=== PATIENT | male | born 1980 | race Caucasian/White ===

== ENCOUNTER 2017-07-19 11:35 | Emergency (ER) | payer OTHER ==
[~2017-07-19] VITALS: Ht 182.9 cm; Wt 100.4 kg
[~2017-07-19 11:35] MED LIST: ALBIPROI INH; AMOX500 PO; ARIP10 PO; Amoxicillin500 MG PO; Ativan0.5 MG PO; Ativan1 MG PO; Augmentin 875-1 EACH PO; BENZ2 PO; BUPR150ER PO; BUPR150T2 PO; CEPH500 PO; CIPRO500 MG PO; CITA20 PO; CLIN300 PO; CLON2 PO; CYCL10 PO; Ciprodex Otic7.5 ML BOTHEARS; Ciprodex Otic7.5 ML LEFTEAR; Cyclobenzaprine5 MG PO; DIPH50 PO; DIVA500EC PO; DOXY100 PO; FAMO20 PO; FLUO10 PO; HALO5 PO; HYDACE5 PO; HYDCOR2.5A PR; IBUP600 PO; IBUP800 PO; LATUDA PO; MIRT15 PO; NEOCOLOTSU LEFTEAR; NEOPOLHCSU BOTHEARS; NEOPOLHCSU RIGHTEAR; Norco 5-325 Ta1 EACH PO; OLAN10 PO; OLAN20 MM; OLAN5 PO; OMEP20ER PO; PROC10 PO; PROM25 PO; Percocet 10-321 EACH PO; Percocet 5-3251 EACH PO; RISP2 PO; RXCYCL10 PO; RXOXYACE PO; SAPHRIS; SULTRIDS PO; TRAZ100 PO; TRAZ150T57 PO; Venlafaxine HC225 MG PO; Zithromax250 MG PO; Zyprexa10 MG PO; [UNRECOGNIZED DRUG - REMARK]
[2018-04-24] MEDS ORDERED: NEOPOLHCSU RIGHTEAR (09:37)
== END 2017-07-19 12:20 | disposition left against medical advice (07) ==
LOC: ER 11:35
DX: Z53.21 Procedure and treatment not carried out due to patient leaving prior to being seen by health care provider (principal)
CPT/HCPCS: 99281

== ENCOUNTER 2017-08-16 09:35 | Emergency (ER) | payer OTHER ==
[~2017-08-16] VITALS: Ht 182.9 cm; Wt 99.8 kg
[2017-08-16] MEDS ORDERED: CYCL10 PO (11:50)
[2017-08-16] MEDS ORDERED: IBUP800 PO (11:50)
[2017-08-16] MEDS ORDERED: Zofran Odt4 MG SL (12:01)
[2018-04-24] MEDS ORDERED: NEOPOLHCSU RIGHTEAR (09:37)
== END 2017-08-16 12:00 | disposition home or self-care (01) ==
LOC: ER 09:35
DX: S06.0X9A Concussion with loss of consciousness of unspecified duration, initial encounter (principal); S16.1XXA Strain of muscle, fascia and tendon at neck level, initial encounter; F17.210 Nicotine dependence, cigarettes, uncomplicated; Z88.8 Allergy status to other drugs, medicaments and biological substances; V69.60XA Unspecified occupant of heavy transport vehicle injured in collision with unspecified motor vehicles in traffic accident, initial encounter
CPT/HCPCS: 70450; 72125; 96372; 99284; J1885; J2405

== ENCOUNTER 2017-09-06 18:47 | Emergency (ER) | payer OTHER ==
[~2017-09-06] VITALS: Ht 182.9 cm; Wt 99.8 kg
[~2017-09-06 18:47] MED LIST changes: +Zofran Odt4 MG SL
[2017-09-06] MEDS ORDERED: Amoxicillin500 MG PO (20:21)
== END 2017-09-06 20:28 | disposition home or self-care (01) ==
LOC: ER 18:47
DX: H66.92 Otitis media, unspecified, left ear (principal); F17.210 Nicotine dependence, cigarettes, uncomplicated; Z88.8 Allergy status to other drugs, medicaments and biological substances
CPT/HCPCS: 99283

== ENCOUNTER 2017-09-19 08:44 | Emergency (ER) | payer OTHER ==
[~2017-09-19] VITALS: Ht 185.4 cm; Wt 99.8 kg
[2017-09-19] MEDS ORDERED: IBUP800 PO (09:13)
== END 2017-09-19 09:21 | disposition home or self-care (01) ==
LOC: ER 08:44
DX: S61.411A Laceration without foreign body of right hand, initial encounter (principal); Z23 Encounter for immunization; F17.210 Nicotine dependence, cigarettes, uncomplicated; W26.0XXA Contact with knife, initial encounter
CPT/HCPCS: 12001; 90471; 90714; 99283

== ENCOUNTER 2018-09-19 09:30 | Emergency (ER) | payer OTHER ==
[~2018-09-19] VITALS: Ht 182.9 cm; Wt 102.1 kg
[2018-09-19] MEDS ORDERED: Bactrim 400-801 EACH PO (10:10)
[2018-09-19] MEDS ORDERED: METR500 PO (10:10)
[2018-09-19 12:04] LABS: BASOPHILS ABSOLUTE AUTO 0.04 K/mm3 (0.00-0.23); BASOPHILS PERCENT AUTO 0 % (0-2); EOSINOPHILS ABSOLUTE AUTO 0.33 K/mm3 (0.00-0.68); EOSINOPHILS PERCENT AUTO 3 % (0-6); Hematocrit 46.4 % (37.0-53.0); Hemoglobin 15.3 g/dL (13.5-17.5); IMMATURE GRAN ABSOLUTE AUTO 0.04 K/mm3 (0.00-0.10); IMMATURE GRAN PERCENT AUTO 0 % (0-1); LYMPHOCYTES ABSOLUTE AUTO 3.24 K/mm3 (0.84-5.20); LYMPHOCYTES PERCENT AUTO 24 % (21-46); MONOCYTES ABSOLUTE AUTO 1.13 K/mm3 (0.16-1.47); MONOCYTES PERCENT AUTO 9 % (4-13); Mean Corpuscular HGB 28.9 pg (26.0-34.0); Mean Corpuscular Volume 88 fL (80-100); Mean Platelet Volume 9.2 fL (9.1-12.4); NEUTROPHILS ABSOLUTE AUTO 8.51 K/mm3 (1.96-9.15); NEUTROPHILS PERCENT AUTO 64 % (41-73); Platelet Count 230 K/mm3 (150-400); RDW Coefficient Variation 12.8 % (11.7-14.2); RDW Standard Deviation 40.8 fL (35.1-46.3); White Blood Cell Count 13.29 K/mm3 (4.00-11.30)
[2018-09-19 12:19] LABS: Alanine Aminotransfer (ALT/SGP 171 U/L (12-78); Albumin, Blood 2.9 g/dL (3.4-5.0); Albumin/Globulin Ratio 0.9 (0.8-1.8); Alk Phos 74 U/L (50-136); Anion Gap 6 mmol/L (6-16); Aspartate Aminotrans (AST/SGOT 90 U/L (12-37); Bilirubin, Total 0.2 mg/dL (0.1-1.0); Blood Urea Nitrogen 15 mg/dL (8-24); Bun/Creatinine Ratio 17.6 (12.0-20.0); CO2, Blood 25 mmol/L (21-32); Calcium, Blood 7.9 mg/dL (8.5-10.1); Chloride, Blood 109 mmol/L (98-108); Creatinine, Blood 0.85 mg/dL (0.60-1.20); Globulin, Blood 3.2 g/dL (2.2-4.0); Glomerular Filtration Rate >60 (60-); Glucose, Blood 93 mg/dL (70-99); Potassium, Blood 4.3 mmol/L (3.5-5.5); Sodium, Blood 140 mmol/L (136-145); Total Protein, Blood 6.1 g/dL (6.4-8.2)
[2018-09-19] MEDS ORDERED: Flagyl500 MG PO (13:26)
[2018-09-19] MEDS ORDERED: Norco 5-325 Ta1 EACH PO (13:26)
[2018-09-19] MEDS ORDERED: Colace100 MG PO (13:26)
[2018-09-19] MEDS ORDERED: Bactrim Ds Tab1 EACH PO (13:26)
== END 2018-09-19 14:00 | disposition home or self-care (01) ==
LOC: ER 09:30
PROVIDERS: Emergency Medicine
DX: K57.32 Diverticulitis of large intestine without perforation or abscess without bleeding (principal); Z88.8 Allergy status to other drugs, medicaments and biological substances; Z79.899 Other long term (current) drug therapy; F43.10 Post-traumatic stress disorder, unspecified; F31.9 Bipolar disorder, unspecified; F20.9 Schizophrenia, unspecified
CPT/HCPCS: 36415; 74176; 80053; 83690; 85025; 96361; 96374; 96375; 99284-25; J2405; J3010; J7030

== ENCOUNTER 2018-10-10 12:47 | Emergency (ER) | payer OTHER ==
[~2018-10-10] VITALS: Ht 182.9 cm; Wt 102.1 kg
[~2018-10-10 12:47] MED LIST changes: +Bactrim 400-801 EACH PO; +Bactrim Ds Tab1 EACH PO; +Colace100 MG PO; +Flagyl500 MG PO; +METR500 PO
[2018-10-10 13:48] LABS: BASOPHILS ABSOLUTE AUTO 0.05 K/mm3 (0.00-0.23); BASOPHILS PERCENT AUTO 0 % (0-2); EOSINOPHILS ABSOLUTE AUTO 0.29 K/mm3 (0.00-0.68); EOSINOPHILS PERCENT AUTO 2 % (0-6); IMMATURE GRAN ABSOLUTE AUTO 0.03 K/mm3 (0.00-0.10); IMMATURE GRAN PERCENT AUTO 0 % (0-1); LYMPHOCYTES ABSOLUTE AUTO 3.52 K/mm3 (0.84-5.20); LYMPHOCYTES PERCENT AUTO 29 % (21-46); MONOCYTES ABSOLUTE AUTO 0.86 K/mm3 (0.16-1.47); MONOCYTES PERCENT AUTO 7 % (4-13); Mean Corpuscular HGB 29.7 pg (26.0-34.0); Mean Corpuscular Volume 87 fL (80-100); Mean Platelet Volume 9.1 fL (9.1-12.4); NEUTROPHILS ABSOLUTE AUTO 7.41 K/mm3 (1.96-9.15); NEUTROPHILS PERCENT AUTO 61 % (41-73); Platelet Count 247 K/mm3 (150-400); RDW Coefficient Variation 12.1 % (11.7-14.2); RDW Standard Deviation 38.7 fL (35.1-46.3); Red Blood Cell Count 5.39 M/mm3 (4.30-5.90); White Blood Cell Count 12.16 K/mm3 (4.00-11.30)
[2018-10-10 14:05] LABS: Alanine Aminotransfer (ALT/SGP 80 U/L (12-78); Albumin, Blood 3.4 g/dL (3.4-5.0); Albumin/Globulin Ratio 0.9 (0.8-1.8); Alk Phos 72 U/L (50-136); Anion Gap 4 mmol/L (6-16); Aspartate Aminotrans (AST/SGOT 28 U/L (12-37); Bilirubin, Total 0.5 mg/dL (0.1-1.0); Blood Urea Nitrogen 23 mg/dL (8-24); CO2, Blood 26 mmol/L (21-32); Calcium, Blood 8.4 mg/dL (8.5-10.1); Chloride, Blood 107 mmol/L (98-108); Globulin, Blood 3.7 g/dL (2.2-4.0); Glomerular Filtration Rate >60 (60-); Glucose, Blood 103 mg/dL (70-99); Potassium, Blood 3.9 mmol/L (3.5-5.5); Sodium, Blood 137 mmol/L (136-145); Total Protein, Blood 7.1 g/dL (6.4-8.2)
[2018-10-10 15:18] LABS: Source, Urine Clean Catch
[2018-10-10 15:29] LABS: Bilirubin, Urine Neg (Neg); Blood, Urine Neg (Neg); Glucose Qualitative, Urine Neg (Neg); Ketones, Urine Neg (Neg); Leukocyte Esterase, Urine Neg (Neg); Nitrite, Urine Neg (Neg); Protein, Urine Neg (Neg); Urobilinogen, Urine 1+ (Normal)
[2018-10-10 15:56] LABS: Appearance, Urine Clear (Clear); Color, Urine Yellow (P-Yellow)
== END 2018-10-10 16:07 | disposition left against medical advice (07) ==
LOC: ER 12:47
PROVIDERS: Internal Medicine; Physician Assistant
DX: R10.32 Left lower quadrant pain (principal)
CPT/HCPCS: 36415; 80053; 81003; 83690; 85025; 99284

== ENCOUNTER 2018-10-20 09:19 | Emergency (ER) | payer OTHER ==
[~2018-10-20] VITALS: Ht 182.9 cm; Wt 102.1 kg
[2018-10-20] MEDS ORDERED: Veetids 500500 MG PO (10:07)
== END 2018-10-20 10:34 | disposition home or self-care (01) ==
LOC: ER 09:19
DX: J03.90 Acute tonsillitis, unspecified (principal); F20.9 Schizophrenia, unspecified; F31.9 Bipolar disorder, unspecified; F43.10 Post-traumatic stress disorder, unspecified; Z87.891 Personal history of nicotine dependence; Z88.8 Allergy status to other drugs, medicaments and biological substances
CPT/HCPCS: 87430; 96374; 99283-25; J1100

== ENCOUNTER 2021-05-04 12:57 | Emergency (ER) | payer OTHER ==
[~2021-05-04] VITALS: Ht 182.9 cm; Wt 108.9 kg
[~2021-05-04 12:57] MED LIST changes: +Veetids 500500 MG PO
[2021-05-04] MEDS ORDERED: CEPH500 PO (14:28)
== END 2021-05-04 14:52 | disposition home or self-care (01) ==
LOC: ER 12:57
DX: L03.311 Cellulitis of abdominal wall (principal); F20.9 Schizophrenia, unspecified; Z88.8 Allergy status to other drugs, medicaments and biological substances
CPT/HCPCS: 10061; 99283-25; A9270

== ENCOUNTER 2021-05-15 15:29 | Emergency (ER) | payer OTHER ==
[~2021-05-15] VITALS: Ht 182.9 cm; Wt 106.1 kg
[2021-05-15 16:12] LABS: BASOPHILS ABSOLUTE AUTO 0.05 K/mm3 (0.00-0.23); BASOPHILS PERCENT AUTO 0 % (0-2); EOSINOPHILS ABSOLUTE AUTO 0.28 K/mm3 (0.00-0.68); EOSINOPHILS PERCENT AUTO 2 % (0-6); Hemoglobin 16.1 g/dL (13.5-17.5); IMMATURE GRAN ABSOLUTE AUTO 0.03 K/mm3 (0.00-0.10); IMMATURE GRAN PERCENT AUTO 0 % (0-1); LYMPHOCYTES ABSOLUTE AUTO 5.32 K/mm3 (0.84-5.20); LYMPHOCYTES PERCENT AUTO 39 % (21-46); MONOCYTES ABSOLUTE AUTO 1.18 K/mm3 (0.16-1.47); MONOCYTES PERCENT AUTO 9 % (4-13); Mean Corpuscular HGB 29.2 pg (26.0-34.0); Mean Corpuscular HGB Conc 34.3 g/dL (31.5-36.5); Mean Corpuscular Volume 85 fL (80-100); Mean Platelet Volume 9.1 fL (9.1-12.4); NEUTROPHILS ABSOLUTE AUTO 6.75 K/mm3 (1.96-9.15); NEUTROPHILS PERCENT AUTO 50 % (41-73); Platelet Count 256 K/mm3 (150-400); RDW Coefficient Variation 12.2 % (11.7-14.2); RDW Standard Deviation 38.5 fL (35.1-46.3); Red Blood Cell Count 5.51 M/mm3 (4.30-5.90); White Blood Cell Count 13.61 K/mm3 (4.00-11.30)
[2021-05-15 16:38] LABS: Alanine Aminotransfer (ALT/SGP 53 U/L (12-78); Albumin, Blood 3.5 g/dL (3.4-5.0); Albumin/Globulin Ratio 0.9 (0.8-1.8); Alk Phos 77 U/L (50-136); Anion Gap 4 mmol/L (6-16); Aspartate Aminotrans (AST/SGOT 21 U/L (12-37); Bilirubin, Total 0.3 mg/dL (0.1-1.0); Blood Urea Nitrogen 20 mg/dL (8-24); Bun/Creatinine Ratio 30.4 (12.0-20.0); CO2, Blood 26 mmol/L (21-32); Calcium, Blood 8.8 mg/dL (8.5-10.1); Chloride, Blood 109 mmol/L (98-108); Creatinine, Blood 0.66 mg/dL (0.60-1.20); Globulin, Blood 3.8 g/dL (2.2-4.0); Glomerular Filtration Rate >60 (60-); Glucose, Blood 111 mg/dL (70-99); Potassium, Blood 3.7 mmol/L (3.5-5.5); Sodium, Blood 139 mmol/L (136-145); Total Protein, Blood 7.3 g/dL (6.4-8.2)
[2021-05-15] MEDS ORDERED: Flagyl500 MG PO (19:08)
[2021-05-15] MEDS ORDERED: Cipro500 MG PO (19:08)
[2021-05-15] MEDS ORDERED: Percocet 5-3251 EACH PO (19:12)
== END 2021-05-15 19:18 | disposition home or self-care (01) ==
LOC: ER 15:29
PROVIDERS: Student in an Organized Health Care Education/Training Program
DX: K57.32 Diverticulitis of large intestine without perforation or abscess without bleeding (principal); Z88.8 Allergy status to other drugs, medicaments and biological substances; Z79.899 Other long term (current) drug therapy
CPT/HCPCS: 36415; 74177; 80053; 81000; 85025; 96374; 96375; 99284-25; A9270; J1170; J1885; J2405; Q9967

== ENCOUNTER 2021-06-13 22:47 | Emergency (ER) | payer OTHER ==
[~2021-06-13] VITALS: Ht 182.9 cm; Wt 108.9 kg
[~2021-06-13 22:47] MED LIST changes: +AMOCLA875 PO; +Cipro500 MG PO
[2021-06-14 02:25] LABS: Hematocrit 47.7 % (37.0-53.0); Hemoglobin 16.1 g/dL (13.5-17.5); Mean Corpuscular HGB 29.5 pg (26.0-34.0); Mean Corpuscular HGB Conc 33.8 g/dL (31.5-36.5); Mean Corpuscular Volume 87 fL (80-100); Mean Platelet Volume 9.3 fL (9.1-12.4); Platelet Count 253 K/mm3 (150-400); RDW Coefficient Variation 12.2 % (11.7-14.2); RDW Standard Deviation 39.1 fL (35.1-46.3); Red Blood Cell Count 5.46 M/mm3 (4.30-5.90); White Blood Cell Count 17.46 K/mm3 (4.00-11.30)
[2021-06-14 02:42] LABS: Alanine Aminotransfer (ALT/SGP 67 U/L (12-78); Albumin/Globulin Ratio 1.1 (0.8-1.8); Alk Phos 84 U/L (50-136); Anion Gap 7 mmol/L (6-16); Aspartate Aminotrans (AST/SGOT 26 U/L (12-37); Bilirubin, Total 0.5 mg/dL (0.1-1.0); Blood Urea Nitrogen 19 mg/dL (8-24); Bun/Creatinine Ratio 21.7 (12.0-20.0); CO2, Blood 28 mmol/L (21-32); Chloride, Blood 106 mmol/L (98-108); Creatinine, Blood 0.88 mg/dL (0.60-1.20); Globulin, Blood 3.8 g/dL (2.2-4.0); Glomerular Filtration Rate >60 (60-); Glucose, Blood 100 mg/dL (70-99); Potassium, Blood 4.6 mmol/L (3.5-5.5); Sodium, Blood 141 mmol/L (136-145); Total Protein, Blood 7.8 g/dL (6.4-8.2)
[2021-06-14 02:44] LABS: BASOPHILS PERCENT MAN 0 % (0-2); EOSINOPHILS ABSOLUTE MAN 0.52 K/mm3 (0.00-0.68); EOSINOPHILS PERCENT MAN 3 % (0-6); LYMPHOCYTES % ATYPICAL MANUAL 9 % (0-0); LYMPHOCYTES ABSOLUTE MAN 6.46 K/mm3 (0.84-5.20); LYMPHOCYTES PERCENT MAN 28 % (21-46); MONOCYTES ABSOLUTE MAN 1.74 K/mm3 (0.16-1.47); MONOCYTES PERCENT MAN 10 % (4-13); NEUTROPHILS ABSOLUTE MAN 8.73 K/mm3 (1.96-9.15); SEG NEUTROPHILS PERCENT MAN 50 % (41-73); TOTAL CELLS COUNTED 100
[2021-06-14] MEDS ORDERED: AMOCLA875 PO (05:24)
== END 2021-06-14 05:41 | disposition home or self-care (01) ==
LOC: ER 22:47
PROVIDERS: Student in an Organized Health Care Education/Training Program
DX: K57.92 Diverticulitis of intestine, part unspecified, without perforation or abscess without bleeding (principal); H60.92 Unspecified otitis externa, left ear; F17.210 Nicotine dependence, cigarettes, uncomplicated; Z88.8 Allergy status to other drugs, medicaments and biological substances
CPT/HCPCS: 36415; 80053; 83690; 85025; 96374; 96375; 99283-25; A9270; J1885; J2270

== ENCOUNTER 2021-09-10 05:48 | Emergency (ER) | payer OTHER ==
[~2021-09-10] VITALS: Ht 182.9 cm; Wt 111.1 kg
[2021-09-10] MEDS ORDERED: SULTRIDS PO (06:40)
== END 2021-09-10 06:53 | disposition home or self-care (01) ==
LOC: ER 05:48
DX: L73.9 Follicular disorder, unspecified (principal); F17.210 Nicotine dependence, cigarettes, uncomplicated
CPT/HCPCS: 99282

== ENCOUNTER → 2021-10-31 | Outpatient (CLI) | payer OTHER ==
[~2021-10-31] MED LIST changes: +DECADRON6 MG PO; +Monodox100 MG PO
== END | disposition home or self-care (01) ==
LOC: LAB SHORT 11:03
DX: J02.9 Acute pharyngitis, unspecified (principal)
CPT/HCPCS: 87081

== ENCOUNTER 2021-11-01 23:54 | Emergency (ER) | payer OTHER ==
[~2021-11-01] VITALS: Ht 180.3 cm; Wt 108.9 kg
[~2021-11-01 23:54] MED LIST changes: -DECADRON6 MG PO; -Monodox100 MG PO
[2021-11-02] MEDS ORDERED: Monodox100 MG PO (10:36)
[2021-11-02] MEDS ORDERED: DECADRON6 MG PO (11:01)
== END 2021-11-02 00:40 | disposition left against medical advice (07) ==
LOC: ER 23:54
DX: J02.9 Acute pharyngitis, unspecified (principal)
CPT/HCPCS: 99281

== ENCOUNTER 2021-11-02 07:46 | Emergency (ER) | payer OTHER ==
[~2021-11-02] VITALS: Ht 182.9 cm; Wt 108.9 kg
[2021-11-02 09:20] LABS: BASOPHILS ABSOLUTE AUTO 0.05 K/mm3 (0.00-0.23); BASOPHILS PERCENT AUTO 0 % (0-2); EOSINOPHILS ABSOLUTE AUTO 0.32 K/mm3 (0.00-0.68); EOSINOPHILS PERCENT AUTO 2 % (0-6); Hemoglobin 14.6 g/dL (13.5-17.5); IMMATURE GRAN ABSOLUTE AUTO 0.07 K/mm3 (0.00-0.10); IMMATURE GRAN PERCENT AUTO 0 % (0-1); LYMPHOCYTES ABSOLUTE AUTO 3.62 K/mm3 (0.84-5.20); LYMPHOCYTES PERCENT AUTO 21 % (21-46); MONOCYTES ABSOLUTE AUTO 2.56 K/mm3 (0.16-1.47); MONOCYTES PERCENT AUTO 15 % (4-13); Mean Corpuscular HGB 29.2 pg (26.0-34.0); Mean Corpuscular HGB Conc 33.2 g/dL (31.5-36.5); Mean Corpuscular Volume 88 fL (80-100); Mean Platelet Volume 9.1 fL (9.1-12.4); NEUTROPHILS ABSOLUTE AUTO 10.32 K/mm3 (1.96-9.15); NEUTROPHILS PERCENT AUTO 61 % (41-73); Platelet Count 237 K/mm3 (150-400); RDW Coefficient Variation 12.4 % (11.7-14.2); RDW Standard Deviation 40.3 fL (35.1-46.3); White Blood Cell Count 16.94 K/mm3 (4.00-11.30)
[2021-11-02 09:34] LABS: Albumin, Blood 3.2 g/dL (3.4-5.0); Albumin/Globulin Ratio 0.8 (0.8-1.8); Bilirubin, Total 0.4 mg/dL (0.1-1.0); Bun/Creatinine Ratio 28.4 (12.0-20.0); Calcium, Blood 8.8 mg/dL (8.5-10.1); Creatinine, Blood 0.67 mg/dL (0.60-1.20); Globulin, Blood 3.8 g/dL (2.2-4.0); Potassium, Blood 4.2 mmol/L (3.5-5.5)
[2021-11-02] MEDS ORDERED: Monodox100 MG PO (10:36)
[2021-11-02] MEDS ORDERED: DECADRON6 MG PO (11:01)
== END 2021-11-02 11:30 | disposition home or self-care (01) ==
LOC: ER 07:46
PROVIDERS: Physician Assistant
DX: J02.9 Acute pharyngitis, unspecified (principal); J32.9 Chronic sinusitis, unspecified; F17.210 Nicotine dependence, cigarettes, uncomplicated; Z88.8 Allergy status to other drugs, medicaments and biological substances; Z79.52 Long term (current) use of systemic steroids
CPT/HCPCS: 36415; 70491; 80053; 83690; 85025; 86308; J0456; J0696; J1100; J1885; J2405; J7030; J7050; Q9967

== ENCOUNTER 2021-12-01 06:10 | Emergency (ER) | payer OTHER ==
[~2021-12-01] VITALS: Ht 182.9 cm; Wt 108.9 kg
[~2021-12-01 06:10] MED LIST changes: +DECADRON6 MG PO; +Monodox100 MG PO
== END 2021-12-01 08:12 | disposition left against medical advice (07) ==
LOC: ER 06:10
DX: L02.214 Cutaneous abscess of groin (principal); F17.200 Nicotine dependence, unspecified, uncomplicated; Z88.8 Allergy status to other drugs, medicaments and biological substances; Z53.29 Procedure and treatment not carried out because of patient's decision for other reasons
CPT/HCPCS: 99282

== ENCOUNTER 2022-04-23 12:12 | Emergency (ER) | payer OTHER ==
[~2022-04-23] VITALS: Ht 182.9 cm; Wt 108.9 kg
[~2022-04-23 12:12] MED LIST changes: +FLAGYL500 M1 PO
[2022-04-23 13:14] LABS: BASOPHILS ABSOLUTE AUTO 0.08 K/mm3 (0.00-0.23); BASOPHILS PERCENT AUTO 1 % (0-2); EOSINOPHILS ABSOLUTE AUTO 0.37 K/mm3 (0.00-0.68); EOSINOPHILS PERCENT AUTO 2 % (0-6); Hematocrit 46.7 % (37.0-53.0); Hemoglobin 16.5 g/dL (13.5-17.5); IMMATURE GRAN ABSOLUTE AUTO 0.05 K/mm3 (0.00-0.10); IMMATURE GRAN PERCENT AUTO 0 % (0-1); LYMPHOCYTES ABSOLUTE AUTO 5.38 K/mm3 (0.84-5.20); LYMPHOCYTES PERCENT AUTO 35 % (21-46); MONOCYTES ABSOLUTE AUTO 1.32 K/mm3 (0.16-1.47); MONOCYTES PERCENT AUTO 9 % (4-13); Mean Corpuscular HGB 29.5 pg (26.0-34.0); Mean Corpuscular HGB Conc 35.3 g/dL (31.5-36.5); Mean Corpuscular Volume 83 fL (80-100); Mean Platelet Volume 8.8 fL (9.1-12.4); NEUTROPHILS ABSOLUTE AUTO 8.06 K/mm3 (1.96-9.15); NEUTROPHILS PERCENT AUTO 53 % (41-73); Platelet Count 267 K/mm3 (150-400); RDW Coefficient Variation 12.5 % (11.7-14.2); White Blood Cell Count 15.26 K/mm3 (4.00-11.30)
[2022-04-23 13:34] LABS: Alanine Aminotransfer (ALT/SGP 84 U/L (12-78); Albumin, Blood 3.4 g/dL (3.4-5.0); Albumin/Globulin Ratio 0.9 (0.8-1.8); Alk Phos 85 U/L (50-136); Anion Gap 5 mmol/L (6-16); Aspartate Aminotrans (AST/SGOT 31 U/L (12-37); Bilirubin, Total 0.3 mg/dL (0.1-1.0); Blood Urea Nitrogen 19 mg/dL (8-24); Bun/Creatinine Ratio 28.6 (12.0-20.0); C-REACTIVE PROTEIN, EXT RANGE <0.290 mg/dL (0.000-0.300); CO2, Blood 27 mmol/L (21-32); Calcium, Blood 8.7 mg/dL (8.5-10.1); Chloride, Blood 107 mmol/L (98-108); Creatinine, Blood 0.67 mg/dL (0.60-1.20); Globulin, Blood 3.6 g/dL (2.2-4.0); Glomerular Filtration Rate 122 (60-); Glucose, Blood 111 mg/dL (70-99); Potassium, Blood 4.3 mmol/L (3.5-5.5); Sodium, Blood 139 mmol/L (136-145)
[2022-04-23] MEDS ORDERED: Roxicodone5 MG PO (14:14)
[2022-04-23] MEDS ORDERED: IBUP600 PO (14:14)
== END 2022-04-23 14:22 | disposition home or self-care (01) ==
LOC: ER 12:12
PROVIDERS: Emergency Medicine
DX: R10.32 Left lower quadrant pain (principal); F17.210 Nicotine dependence, cigarettes, uncomplicated; Z88.8 Allergy status to other drugs, medicaments and biological substances
CPT/HCPCS: 80053; 85025; 86140; J1885

== ENCOUNTER 2022-08-14 20:50 | Emergency (ER) | payer OTHER ==
[~2022-08-14] VITALS: Ht 182.9 cm; Wt 113.4 kg
[~2022-08-14 20:50] MED LIST changes: +ANTIBIOTICS; +Roxicodone5 MG PO
[2022-08-14 21:37] LABS: BASOPHILS ABSOLUTE AUTO 0.09 K/mm3 (0.00-0.23); BASOPHILS PERCENT AUTO 1 % (0-2); EOSINOPHILS ABSOLUTE AUTO 0.43 K/mm3 (0.00-0.68); EOSINOPHILS PERCENT AUTO 2 % (0-6); Hemoglobin 16.8 g/dL (13.5-17.5); IMMATURE GRAN ABSOLUTE AUTO 0.07 K/mm3 (0.00-0.10); IMMATURE GRAN PERCENT AUTO 0 % (0-1); LYMPHOCYTES ABSOLUTE AUTO 6.68 K/mm3 (0.84-5.20); LYMPHOCYTES PERCENT AUTO 36 % (21-46); MONOCYTES ABSOLUTE AUTO 1.78 K/mm3 (0.16-1.47); MONOCYTES PERCENT AUTO 10 % (4-13); Mean Corpuscular HGB 28.8 pg (26.0-34.0); Mean Corpuscular HGB Conc 34.3 g/dL (31.5-36.5); Mean Corpuscular Volume 84 fL (80-100); Mean Platelet Volume 9.1 fL (9.1-12.4); NEUTROPHILS ABSOLUTE AUTO 9.63 K/mm3 (1.96-9.15); NEUTROPHILS PERCENT AUTO 52 % (41-73); Platelet Count 322 K/mm3 (150-400); RDW Coefficient Variation 12.3 % (11.7-14.2); Red Blood Cell Count 5.84 M/mm3 (4.30-5.90); White Blood Cell Count 18.68 K/mm3 (4.00-11.30)
[2022-08-14 21:57] LABS: Albumin, Blood 3.9 g/dL (3.4-5.0); Albumin/Globulin Ratio 0.9 (0.8-1.8); Bilirubin, Total 0.2 mg/dL (0.1-1.0); Calcium, Blood 9.4 mg/dL (8.5-10.1); Creatinine, Blood 0.66 mg/dL (0.60-1.20); Globulin, Blood 4.3 g/dL (2.2-4.0); Total Protein, Blood 8.2 g/dL (6.4-8.2)
[2022-08-14 22:17] LABS: Source, Urine Clean Catch
[2022-08-14 22:19] LABS: Bilirubin, Urine Neg (Neg); Blood, Urine Neg (Neg); Glucose Qualitative, Urine Neg (Neg); Ketones, Urine Neg (Neg); Leukocyte Esterase, Urine Neg (Neg); Nitrite, Urine Neg (Neg); Protein, Urine Neg (Neg); Urobilinogen, Urine NORM (Normal)
[2022-08-14 22:44] LABS: Appearance, Urine Clear (Clear); Color, Urine Yellow (P-Yellow)
[2022-08-14] MEDS ORDERED: IBU600 MG PO (23:31)
[2022-08-14] MEDS ORDERED: DICY20 PO (23:31)
== END 2022-08-14 23:42 | disposition home or self-care (01) ==
LOC: ER 20:50
PROVIDERS: Student in an Organized Health Care Education/Training Program
DX: R10.32 Left lower quadrant pain (principal); F17.210 Nicotine dependence, cigarettes, uncomplicated; Z88.8 Allergy status to other drugs, medicaments and biological substances
CPT/HCPCS: 36415; 74177; 80053; 81003; 83690; 85025; 93005; 93010; 96374-59; 99284-25; J1885; J7030; Q9967

== ENCOUNTER 2022-08-15 11:34 | Emergency (ER) | payer OTHER ==
[~2022-08-15] VITALS: Ht 182.9 cm; Wt 113.4 kg
[~2022-08-15 11:34] MED LIST changes: +DICY20 PO; +IBU600 MG PO
[2022-08-15 12:19] LABS: BASOPHILS ABSOLUTE AUTO 0.08 K/mm3 (0.00-0.23); BASOPHILS PERCENT AUTO 0 % (0-2); EOSINOPHILS ABSOLUTE AUTO 0.28 K/mm3 (0.00-0.68); EOSINOPHILS PERCENT AUTO 2 % (0-6); Hematocrit 45.5 % (37.0-53.0); Hemoglobin 15.5 g/dL (13.5-17.5); IMMATURE GRAN ABSOLUTE AUTO 0.07 K/mm3 (0.00-0.10); IMMATURE GRAN PERCENT AUTO 0 % (0-1); LYMPHOCYTES ABSOLUTE AUTO 4.11 K/mm3 (0.84-5.20); LYMPHOCYTES PERCENT AUTO 22 % (21-46); MONOCYTES ABSOLUTE AUTO 1.32 K/mm3 (0.16-1.47); MONOCYTES PERCENT AUTO 7 % (4-13); Mean Corpuscular HGB 29.1 pg (26.0-34.0); Mean Corpuscular HGB Conc 34.1 g/dL (31.5-36.5); Mean Corpuscular Volume 86 fL (80-100); Mean Platelet Volume 9.3 fL (9.1-12.4); NEUTROPHILS ABSOLUTE AUTO 13.27 K/mm3 (1.96-9.15); NEUTROPHILS PERCENT AUTO 69 % (41-73); Platelet Count 268 K/mm3 (150-400); RDW Coefficient Variation 12.5 % (11.7-14.2); RDW Standard Deviation 38.8 fL (35.1-46.3); Red Blood Cell Count 5.32 M/mm3 (4.30-5.90); White Blood Cell Count 19.13 K/mm3 (4.00-11.30)
[2022-08-15 12:24] LABS: Albumin, Blood 3.5 g/dL (3.4-5.0); Albumin/Globulin Ratio 0.9 (0.8-1.8); Bilirubin, Total 0.3 mg/dL (0.1-1.0); Bun/Creatinine Ratio 36.7 (12.0-20.0); Calcium, Blood 8.7 mg/dL (8.5-10.1); Creatinine, Blood 0.74 mg/dL (0.60-1.20); Globulin, Blood 3.7 g/dL (2.2-4.0); Magnesium, Blood 2.2 mg/dL (1.6-2.4); Potassium, Blood 4.1 mmol/L (3.5-5.5); Total Protein, Blood 7.2 g/dL (6.4-8.2)
== END 2022-08-15 14:37 | disposition left against medical advice (07) ==
LOC: ER 11:34
PROVIDERS: Physician Assistant
DX: K62.5 Hemorrhage of anus and rectum (principal); Z53.21 Procedure and treatment not carried out due to patient leaving prior to being seen by health care provider
CPT/HCPCS: 36415; 80053; 83735; 85025

== ENCOUNTER 2022-08-19 07:46 | Emergency (ER) | payer OTHER ==
[~2022-08-19] VITALS: Ht 182.9 cm; Wt 111.1 kg
[2022-08-19 08:36] LABS: BASOPHILS ABSOLUTE AUTO 0.08 K/mm3 (0.00-0.23); BASOPHILS PERCENT AUTO 1 % (0-2); EOSINOPHILS ABSOLUTE AUTO 0.65 K/mm3 (0.00-0.68); EOSINOPHILS PERCENT AUTO 5 % (0-6); Hematocrit 45.3 % (37.0-53.0); Hemoglobin 15.7 g/dL (13.5-17.5); IMMATURE GRAN ABSOLUTE AUTO 0.04 K/mm3 (0.00-0.10); IMMATURE GRAN PERCENT AUTO 0 % (0-1); LYMPHOCYTES ABSOLUTE AUTO 4.58 K/mm3 (0.84-5.20); LYMPHOCYTES PERCENT AUTO 36 % (21-46); MONOCYTES ABSOLUTE AUTO 1.24 K/mm3 (0.16-1.47); MONOCYTES PERCENT AUTO 10 % (4-13); Mean Corpuscular HGB 29.5 pg (26.0-34.0); Mean Corpuscular HGB Conc 34.7 g/dL (31.5-36.5); Mean Corpuscular Volume 85 fL (80-100); Mean Platelet Volume 9.1 fL (9.1-12.4); NEUTROPHILS ABSOLUTE AUTO 6.31 K/mm3 (1.96-9.15); NEUTROPHILS PERCENT AUTO 49 % (41-73); Platelet Count 254 K/mm3 (150-400); RDW Coefficient Variation 12.5 % (11.7-14.2); RDW Standard Deviation 38.2 fL (35.1-46.3); Red Blood Cell Count 5.32 M/mm3 (4.30-5.90)
[2022-08-19] MEDS ORDERED: FAMOTIDINE 20 MG (08:36)
[2022-08-19 08:54] LABS: Albumin, Blood 3.5 g/dL (3.4-5.0); Albumin/Globulin Ratio 0.9 (0.8-1.8); Bilirubin, Total 0.4 mg/dL (0.1-1.0); Bun/Creatinine Ratio 26.4 (12.0-20.0); Calcium, Blood 8.5 mg/dL (8.5-10.1); Creatinine, Blood 0.8 mg/dL (0.60-1.20); Globulin, Blood 4.1 g/dL (2.2-4.0); Potassium, Blood 4.1 mmol/L (3.5-5.5); Total Protein, Blood 7.6 g/dL (6.4-8.2)
== END 2022-08-19 09:40 | disposition home or self-care (01) ==
LOC: ER 07:46
PROVIDERS: Emergency Medicine
DX: K62.5 Hemorrhage of anus and rectum (principal); F17.210 Nicotine dependence, cigarettes, uncomplicated; W18.2XXA Fall in (into) shower or empty bathtub, initial encounter; Z88.8 Allergy status to other drugs, medicaments and biological substances
CPT/HCPCS: 36415; 74177; 80053; 85025; 96374-59; 96375; 99284-25; J1885; J2405; Q9967

== ENCOUNTER → 2022-08-26 | Outpatient (CLI) | payer OTHER ==
[~2022-08-26] MED LIST changes: +FAMOTIDINE 20 MG
[2022-08-26 17:50] LABS: Percent Saturation 23.9 % (20.0-50.0)
== END | disposition home or self-care (01) ==
LOC: LAB 17:07 → LAB SHORT 17:07
PROVIDERS: Internal Medicine Hematology & Oncology
DX: D72.829 Elevated white blood cell count, unspecified (principal)
CPT/HCPCS: 82728; 83540; 83550

== ENCOUNTER → 2022-09-16 | Outpatient (CLI) | payer OTHER ==
[2022-09-16 16:51] LABS: Source, Urine Voided
[2022-09-16 17:39] LABS: Appearance, Urine Clear (Clear); Bilirubin, Urine Neg (Neg); Blood, Urine Neg (Neg); Color, Urine Yellow (P-Yellow); Glucose Qualitative, Urine Neg (Neg); Ketones, Urine Neg (Neg); Leukocyte Esterase, Urine Neg (Neg); Nitrite, Urine Neg (Neg); Protein, Urine Neg (Neg); Urobilinogen, Urine NORM (Normal); pH, Urine 6.5 (5.0-8.0)
[2022-09-16 19:26] LABS: PSA, %Free 13.1 %; PSA, Free 0.229 ng/mL
== END | disposition home or self-care (01) ==
LOC: LAB 16:35 → LAB SHORT 16:35
PROVIDERS: Family Medicine
DX: N40.0 Benign prostatic hyperplasia without lower urinary tract symptoms (principal); N30.00 Acute cystitis without hematuria
CPT/HCPCS: 81003; 84153; 84154

== ENCOUNTER → 2022-09-22 | Outpatient (CLI) | payer OTHER ==
[2022-09-22 14:37] LABS: BASOPHILS ABSOLUTE AUTO 0.07 K/mm3 (0.00-0.23); BASOPHILS PERCENT AUTO 0 % (0-2); EOSINOPHILS ABSOLUTE AUTO 0.44 K/mm3 (0.00-0.68); EOSINOPHILS PERCENT AUTO 3 % (0-6); Hemoglobin 16.3 g/dL (13.5-17.5); IMMATURE GRAN ABSOLUTE AUTO 0.04 K/mm3 (0.00-0.10); IMMATURE GRAN PERCENT AUTO 0 % (0-1); LYMPHOCYTES ABSOLUTE AUTO 4.12 K/mm3 (0.84-5.20); LYMPHOCYTES PERCENT AUTO 25 % (21-46); MONOCYTES PERCENT AUTO 8 % (4-13); Mean Corpuscular HGB Conc 34.7 g/dL (31.5-36.5); Mean Corpuscular Volume 86 fL (80-100); Mean Platelet Volume 9.5 fL (9.1-12.4); NEUTROPHILS ABSOLUTE AUTO 10.67 K/mm3 (1.96-9.15); NEUTROPHILS PERCENT AUTO 64 % (41-73); Platelet Count 294 K/mm3 (150-400); RDW Coefficient Variation 12.7 % (11.7-14.2); RDW Standard Deviation 39.9 fL (35.1-46.3); Red Blood Cell Count 5.44 M/mm3 (4.30-5.90); White Blood Cell Count 16.74 K/mm3 (4.00-11.30)
[2022-09-22 14:55] LABS: Alanine Aminotransfer (ALT/SGP 70 U/L (12-78); Albumin, Blood 3.7 g/dL (3.4-5.0); Albumin/Globulin Ratio 0.9 (0.8-1.8); Alk Phos 86 U/L (50-136); Anion Gap 2 mmol/L (6-16); Aspartate Aminotrans (AST/SGOT 35 U/L (12-37); Bilirubin, Total 0.4 mg/dL (0.1-1.0); Blood Urea Nitrogen 24 mg/dL (8-24); Bun/Creatinine Ratio 35.3 (12.0-20.0); CHOL/HDL RATIO 4.6; CO2, Blood 24 mmol/L (21-32); Calcium, Blood 9.2 mg/dL (8.5-10.1); Chloride, Blood 110 mmol/L (98-108); Cholesterol 201 mg/dL (50-200); Creatinine, Blood 0.68 mg/dL (0.60-1.20); Globulin, Blood 3.9 g/dL (2.2-4.0); Glomerular Filtration Rate 121 (60-); Glucose, Blood 97 mg/dL (70-99); HDL Cholesterol 44 mg/dL (>39); LDL/HDL RATIO 2.8; Low Density Lipoprotein Chol 125 mg/dL (0-110); Potassium, Blood 4.1 mmol/L (3.5-5.5); Sodium, Blood 136 mmol/L (136-145); Total Protein, Blood 7.6 g/dL (6.4-8.2); Triglycerides 162 mg/dL (30-160); Very Low Density Lipoprot Chol 32 mg/dL (6-32)
== END | disposition home or self-care (01) ==
LOC: LAB SHORT 13:03 → LAB 13:03
PROVIDERS: Family Medicine
DX: E78.5 Hyperlipidemia, unspecified (principal); R10.9 Unspecified abdominal pain
CPT/HCPCS: 80053; 80061; 85025

== ENCOUNTER → 2022-10-21 | Outpatient (CLI) | payer OTHER ==
[2022-10-21 19:24] LABS: Adenovirus F 40/41 Not Detected (NOT DETECT); Astrovirus Not Detected (NOT DETECT); Campylobacter Sp Not Detected (NOT DETECT); Cryptosporidium Not Detected (NOT DETECT); Cyclospora Cayetanensis Not Detected (NOT DETECT); E. Coli O157 Not Detected (NOT DETECT); Entamoeba Histolytica Not Detected (NOT DETECT); Enteroaggregative E. coli-EAEC Not Detected (NOT DETECT); Enteropathogenic E. coli-EPEC Not Detected (NOT DETECT); Enterotoxigenic E. coli-ETEC Not Detected (NOT DETECT); Giardia Lamblia Not Detected (NOT DETECT); Norovirus GI/GII Not Detected (NOT DETECT); Plesiomonas Shigelloides Not Detected (NOT DETECT); Rotavirus A Not Detected (NOT DETECT); Salmonella Sp Not Detected (NOT DETECT); Sapovirus Not Detected (NOT DETECT); Shiga Toxin-prod E. coli-STEC Not Detected (NOT DETECT); Shigella/Enteroin E. coli-EIEC Not Detected (NOT DETECT); Vibrio Cholerae Not Detected (NOT DETECT); Vibrio Sp Not Detected (NOT DETECT); Yersinia Enterocolitica Not Detected (NOT DETECT)
[2022-10-22 10:45] LABS: Stool Occult Bld Immuno 1 Negative (NEGATIVE)
== END | disposition home or self-care (01) ==
LOC: LAB SHORT 13:41 → LAB 13:41
PROVIDERS: Family Medicine
DX: R10.9 Unspecified abdominal pain (principal)
CPT/HCPCS: 82274; 83993; 87507

== ENCOUNTER 2023-02-08 08:58 | Emergency (ER) | payer OTHER ==
[~2023-02-08] VITALS: Ht 188 cm; Wt 104.3 kg
[2023-02-08 10:16] VITALS: BP 163/105
[2023-02-08 11:18] LABS: Source, Urine Clean Catch
[2023-02-08 11:19] LABS: BASOPHILS ABSOLUTE AUTO 0.06 K/mm3 (0.00-0.23); BASOPHILS PERCENT AUTO 1 % (0-2); EOSINOPHILS ABSOLUTE AUTO 0.31 K/mm3 (0.00-0.68); EOSINOPHILS PERCENT AUTO 3 % (0-6); Hematocrit 46.7 % (37.0-53.0); Hemoglobin 16.1 g/dL (13.5-17.5); IMMATURE GRAN ABSOLUTE AUTO 0.03 K/mm3 (0.00-0.10); IMMATURE GRAN PERCENT AUTO 0 % (0-1); LYMPHOCYTES ABSOLUTE AUTO 4.06 K/mm3 (0.84-5.20); LYMPHOCYTES PERCENT AUTO 33 % (21-46); MONOCYTES ABSOLUTE AUTO 1.12 K/mm3 (0.16-1.47); MONOCYTES PERCENT AUTO 9 % (4-13); Mean Corpuscular HGB 29.1 pg (26.0-34.0); Mean Corpuscular HGB Conc 34.5 g/dL (31.5-36.5); Mean Corpuscular Volume 84 fL (80-100); Mean Platelet Volume 8.8 fL (9.1-12.4); NEUTROPHILS ABSOLUTE AUTO 6.65 K/mm3 (1.96-9.15); NEUTROPHILS PERCENT AUTO 54 % (41-73); Platelet Count 253 K/mm3 (150-400); RDW Coefficient Variation 12.5 % (11.7-14.2); RDW Standard Deviation 38.5 fL (35.1-46.3); Red Blood Cell Count 5.54 M/mm3 (4.30-5.90); White Blood Cell Count 12.23 K/mm3 (4.00-11.30)
[2023-02-08 11:33] LABS: Appearance, Urine Clear (Clear); Bilirubin, Urine Neg (Neg); Blood, Urine 1+ (Neg); Color, Urine Yellow (P-Yellow); Glucose Qualitative, Urine Neg (Neg); Ketones, Urine Neg (Neg); Leukocyte Esterase, Urine Neg (Neg); Nitrite, Urine Neg (Neg); Protein, Urine Neg (Neg); Urobilinogen, Urine NORM (Normal)
[2023-02-08 11:39] LABS: Albumin, Blood 3.4 g/dL (3.4-5.0); Albumin/Globulin Ratio 0.9 (0.8-1.8); Bilirubin, Total 0.3 mg/dL (0.1-1.0); Bun/Creatinine Ratio 29.9 (12.0-20.0); Calcium, Blood 8.6 mg/dL (8.5-10.1); Creatinine, Blood 0.67 mg/dL (0.60-1.20); Globulin, Blood 3.7 g/dL (2.2-4.0); Potassium, Blood 4.2 mmol/L (3.5-5.5); Total Protein, Blood 7.1 g/dL (6.4-8.2)
[2023-02-08 11:45] LABS: Bacteria Not Seen /hpf; Squamous Epithelial Cells Rare /hpf (Few); White Blood Cells, Urine Not Seen /hpf (0-5)
== END 2023-02-08 11:05 | disposition left against medical advice (07) ==
LOC: ER 08:58
PROVIDERS: Student in an Organized Health Care Education/Training Program
DX: R10.32 Left lower quadrant pain (principal); R11.0 Nausea; F17.210 Nicotine dependence, cigarettes, uncomplicated; Z88.8 Allergy status to other drugs, medicaments and biological substances
CPT/HCPCS: 80053; 81001; 85025; 93005; 93010; 96374; 99284-25; J1885

== ENCOUNTER 2023-03-10 13:07 | Emergency (ER) | payer OTHER ==
[~2023-03-10] VITALS: Ht 157.5 cm; Wt 115.7 kg
[2023-03-10] MEDS ORDERED: FAMO20 PO (13:57)
[2023-03-10 14:13] LABS: BASOPHILS ABSOLUTE AUTO 0.09 K/mm3 (0.00-0.23); BASOPHILS PERCENT AUTO 1 % (0-2); EOSINOPHILS ABSOLUTE AUTO 0.42 K/mm3 (0.00-0.68); EOSINOPHILS PERCENT AUTO 2 % (0-6); Hematocrit 47.5 % (37.0-53.0); Hemoglobin 16.8 g/dL (13.5-17.5); IMMATURE GRAN ABSOLUTE AUTO 0.08 K/mm3 (0.00-0.10); IMMATURE GRAN PERCENT AUTO 1 % (0-1); LYMPHOCYTES ABSOLUTE AUTO 4.92 K/mm3 (0.84-5.20); LYMPHOCYTES PERCENT AUTO 28 % (21-46); MONOCYTES ABSOLUTE AUTO 1.33 K/mm3 (0.16-1.47); MONOCYTES PERCENT AUTO 8 % (4-13); Mean Corpuscular HGB 29.5 pg (26.0-34.0); Mean Corpuscular HGB Conc 35.4 g/dL (31.5-36.5); Mean Corpuscular Volume 83 fL (80-100); Mean Platelet Volume 9.1 fL (9.1-12.4); NEUTROPHILS ABSOLUTE AUTO 10.84 K/mm3 (1.96-9.15); NEUTROPHILS PERCENT AUTO 61 % (41-73); Platelet Count 265 K/mm3 (150-400); RDW Coefficient Variation 12.9 % (11.7-14.2); White Blood Cell Count 17.68 K/mm3 (4.00-11.30)
[2023-03-10 14:28] LABS: Albumin, Blood 3.7 g/dL (3.4-5.0); Bilirubin, Total 0.3 mg/dL (0.1-1.0); Bun/Creatinine Ratio 26.3 (12.0-20.0); Calcium, Blood 8.9 mg/dL (8.5-10.1); Creatinine, Blood 0.8 mg/dL (0.60-1.20); Globulin, Blood 3.8 g/dL (2.2-4.0); Total Protein, Blood 7.5 g/dL (6.4-8.2)
[2023-03-10 14:49] LABS: Source, Urine Voided
[2023-03-10 14:52] LABS: Appearance, Urine Clear (Clear); Bilirubin, Urine Neg (Neg); Blood, Urine 1+ (Neg); Color, Urine Yellow (P-Yellow); Glucose Qualitative, Urine Neg (Neg); Ketones, Urine Neg (Neg); Leukocyte Esterase, Urine Neg (Neg); Nitrite, Urine Neg (Neg); Protein, Urine Neg (Neg); Specific Gravity, Urine 1.015 (1.003-1.022); Urobilinogen, Urine NORM (Normal)
[2023-03-10 15:25] LABS: Bacteria Few /hpf; Red Blood Cells, Urine 0-2 /hpf (0-2); Squamous Epithelial Cells Rare /hpf (Few); White Blood Cells, Urine 0-2 /hpf (0-5)
[2023-03-10 15:50] VITALS: BP 131/87
[2023-03-10] MEDS ORDERED: ONDA4ODT MM (16:03)
[2023-03-10] MEDS ORDERED: IBUP800 PO (16:03)
[2023-03-10] MEDS ORDERED: Flagyl500 MG PO (16:03)
[2023-03-10] MEDS ORDERED: AMOCLA875 PO (16:03)
== END 2023-03-10 16:11 | disposition home or self-care (01) ==
LOC: ER 13:07
PROVIDERS: Emergency Medicine; Physician Assistant
DX: K52.9 Noninfective gastroenteritis and colitis, unspecified (principal); D72.829 Elevated white blood cell count, unspecified; F17.210 Nicotine dependence, cigarettes, uncomplicated; Z90.49 Acquired absence of other specified parts of digestive tract; Z98.0 Intestinal bypass and anastomosis status; Z88.8 Allergy status to other drugs, medicaments and biological substances; Z79.899 Other long term (current) drug therapy; Z87.19 Personal history of other diseases of the digestive system; Z87.442 Personal history of urinary calculi
CPT/HCPCS: 74177; 80053; 81001; 83690; 85025; 96374; 96375; 99284-25; A9270; J1885; J2270; J2405; Q9967

== ENCOUNTER 2023-03-22 09:41 | Inpatient (IN) | payer OTHER ==
[~2023-03-22] VITALS: Ht 203.2 cm; Wt 115.9 kg
[~2023-03-22 09:41] MED LIST changes: +ONDA4ODT MM
[2023-03-22 10:19] LABS: BASOPHILS ABSOLUTE AUTO 0.05 K/mm3 (0.00-0.23); BASOPHILS PERCENT AUTO 0 % (0-2); EOSINOPHILS ABSOLUTE AUTO 0.11 K/mm3 (0.00-0.68); EOSINOPHILS PERCENT AUTO 1 % (0-6); Hematocrit 46.3 % (37.0-53.0); Hemoglobin 15.8 g/dL (13.5-17.5); IMMATURE GRAN ABSOLUTE AUTO 0.16 K/mm3 (0.00-0.10); IMMATURE GRAN PERCENT AUTO 1 % (0-1); LYMPHOCYTES ABSOLUTE AUTO 3.64 K/mm3 (0.84-5.20); LYMPHOCYTES PERCENT AUTO 17 % (21-46); MONOCYTES ABSOLUTE AUTO 1.57 K/mm3 (0.16-1.47); MONOCYTES PERCENT AUTO 7 % (4-13); Mean Corpuscular HGB 29.5 pg (26.0-34.0); Mean Corpuscular HGB Conc 34.1 g/dL (31.5-36.5); Mean Corpuscular Volume 87 fL (80-100); Mean Platelet Volume 9.3 fL (9.1-12.4); NEUTROPHILS PERCENT AUTO 74 % (41-73); Platelet Count 284 K/mm3 (150-400); RDW Standard Deviation 40.8 fL (35.1-46.3); Red Blood Cell Count 5.35 M/mm3 (4.30-5.90); White Blood Cell Count 21.53 K/mm3 (4.00-11.30)
[2023-03-22] MEDS ORDERED: PANTOPRAZOLE SO40 M2 PO (10:35)
[2023-03-22] MEDS ORDERED: Bentyl20 MG PO (10:35)
[2023-03-22] MEDS ORDERED: NEURONTIN300 MG PO (10:35)
[2023-03-22] MEDS ORDERED: CYCL10 PO (10:36)
[2023-03-22 10:42] LABS: Albumin, Blood 3.3 g/dL (3.4-5.0); Albumin/Globulin Ratio 0.9 (0.8-1.8); Bilirubin, Total 0.3 mg/dL (0.1-1.0); Bun/Creatinine Ratio 27.6 (12.0-20.0); Calcium, Blood 8.5 mg/dL (8.5-10.1); Creatinine, Blood 0.8 mg/dL (0.60-1.20); Globulin, Blood 3.7 g/dL (2.2-4.0); Potassium, Blood 3.9 mmol/L (3.5-5.5)
[2023-03-22 11:49] LABS: Source, Urine Clean Catch
[2023-03-22 12:19] LABS: Appearance, Urine Clear (Clear); Bilirubin, Urine Neg (Neg); Blood, Urine Neg (Neg); Color, Urine Yellow (P-Yellow); Glucose Qualitative, Urine Neg (Neg); Ketones, Urine Neg (Neg); Leukocyte Esterase, Urine Neg (Neg); Nitrite, Urine Neg (Neg); Protein, Urine Neg (Neg); Urobilinogen, Urine NORM (Normal)
[2023-03-22 16:15] VITALS: BP 129/92
--- NOTE | 2023-03-22 18:23 | NUR ---
Received pt from ED @ 161 awake and alert x3. Ambulating independently. VSS. Tolerating diet. States po and IV pain meds effective for LLQ abd pain. Record release signed to obtain MRI and blood cx from [facility]. Faxed, will await results. ED Dr Ambrose noted she requested records as well. Oriented pt and SO to room and call light. All questions answered. Plan of Care reviewed.
[2023-03-22 20:07] VITALS: BP 153/101
--- NOTE | 2023-03-22 22:58 | NUR ---
PATIENT HAS A DESIGNATED SUPPORT PERSON, JARRETT AT BEDSIDE. PATIENT REQUESTING JARRETT TO STAY OVERNIGHT. PT ABLE TO SHOW PROOF OF DSP PAPERWORK AND WHY HE NEEDS A DESIGNATED SUPPORT PERSON. JARRETT SHOWED PROOF OF EMPLOYMENT THROUGH [employer]IA WORK EMAIL. WILL PLACE COPY OF PAPERWORK SHOWING PATIENTS CRITERIA/NEED FOR DSP IN CHART.
--- NOTE | 2023-03-22 23:06 | NUR ---
PROOF OF WASTE FENTANYL PICKED UP FROM PHARMACY TODAY DUE TO PATIENT NOT ADMITTED IN P[facility]. PHARMACIST UNABLE TO ADD PATIENT TO [facility] AT TIME OF REQUEST FOR MED AND SAID I COULD CONTINUOUS WAVE OPERATOR. SIGNED PAPERWORK FOR MED AT PHARMACY WINDOW, WASTED IN MED ROOM 75 MCG OF FENTANYL WITH ARMANDO BAUTISTA RN. UNABLE TO WASTE VIA PYXIS DUE TO THE FACT I DID NOT PULL FROM [facility].
[2023-03-23 01:09] LABS: BASOPHILS ABSOLUTE AUTO 0.06 K/mm3 (0.00-0.23); BASOPHILS PERCENT AUTO 0 % (0-2); EOSINOPHILS ABSOLUTE AUTO 0.23 K/mm3 (0.00-0.68); EOSINOPHILS PERCENT AUTO 1 % (0-6); Hemoglobin 14.2 g/dL (13.5-17.5); IMMATURE GRAN ABSOLUTE AUTO 0.18 K/mm3 (0.00-0.10); IMMATURE GRAN PERCENT AUTO 1 % (0-1); LYMPHOCYTES ABSOLUTE AUTO 7.41 K/mm3 (0.84-5.20); LYMPHOCYTES PERCENT AUTO 32 % (21-46); MONOCYTES ABSOLUTE AUTO 2.23 K/mm3 (0.16-1.47); MONOCYTES PERCENT AUTO 10 % (4-13); Mean Corpuscular HGB 29.2 pg (26.0-34.0); Mean Corpuscular HGB Conc 33.8 g/dL (31.5-36.5); Mean Corpuscular Volume 86 fL (80-100); Mean Platelet Volume 9.2 fL (9.1-12.4); NEUTROPHILS ABSOLUTE AUTO 13.05 K/mm3 (1.96-9.15); NEUTROPHILS PERCENT AUTO 56 % (41-73); Platelet Count 271 K/mm3 (150-400); RDW Coefficient Variation 13.1 % (11.7-14.2); RDW Standard Deviation 40.3 fL (35.1-46.3); Red Blood Cell Count 4.87 M/mm3 (4.30-5.90); White Blood Cell Count 23.16 K/mm3 (4.00-11.30)
[2023-03-23 01:17] VITALS: BP 146/89
[2023-03-23 01:25] LABS: Bun/Creatinine Ratio 30.5 (12.0-20.0); C-Reactive Protein, High Sens. 0.351 mg/L (0.000-3.000); Calcium, Blood 8.1 mg/dL (8.5-10.1); Creatinine, Blood 0.79 mg/dL (0.60-1.20); Potassium, Blood 3.8 mmol/L (3.5-5.5)
[2023-03-23 01:28] LABS: Vancomycin, Trough 6.6 ug/mL (5.0-10.0)
--- NOTE | 2023-03-23 07:36 | NUR ---
SHIFT SUMMARY A/OX4, PSYCH HISTORY SEE H&P, INDEPENDENT IN ROOM, CAREGIVER IN ROOM AND GIVEN OK TO STAY OVERNIGHT PER PRODUCT MANAGER MEDICAL DEVICE. PRN OXY AND TORADOL GIVEN X2. IV FENTANYL FOR 3 DOSES ADDED AND GIVEN X2. PRN FLEXERIL GIVEN X1. PRN ZOFRAN GIVEN X1. BED LOCKED IN LOW POSITION. CALL LIGHT IN REACH, NONSKID SOCKS ON.
[2023-03-23 08:34] VITALS: BP 138/93
--- NOTE | 2023-03-23 12:03 | NUR ---
PATIENT ADMITTED TO LEAVING THE BUILDING TO SMOKE WITH HIS CAREGIVER. CLINICAL COORINATOR LEE DISCUSSED THE HOSPITAL POLICY AND THAT THIS FACILITY IS TOBACCO FREE. PATIENT VERBALIZED UNDERSTANDING AND REPORTS THAT HIS CAREGIVER HAS ALL OF HIS SMOKING MATERIALS. RAY NOTIFIED AND PATIENT WILL BE PLACED ON A 1-1 SITTER FOR BEHAVIORAL OBSERVATION PER VERBAL ORDER. CHARGE NURSE NOTIFIED. PATIENT IS AGREEABLE TO THIS ARRANGMENT AND HAS REQUESTED NICOTINE GUM "IT WORKS BETTER THAN THE PATCH."
--- NOTE | 2023-03-23 16:00 | NUR ---
PATIENT VERBALIZED HIS INTENTION TO LEAVE THE GROUNDS TO GO SMOKE WHEN HIS CAREGIVER RETURNED. EDUCATED PATIENT THAT IT IS HOSPITAL POLICY TO DISCHARGE PATIENT IF HE LEAVES THE PREMESIS TO SMOKE. WHEN INFORMED THAT HE COULD NOT LEAVE TO SMOKE OTHERWISE HE WOULD BE DISCHARGED, PATIENT BECAME VERBALLY AGGRESSIVE AND THREATENED PHYSICAL MEASURES ON SAGE (MANISH), BULL FREEDMAN, AND SECURITY IF THEY TOUCHED HIM. SECURITY CALLED. PATIENT REFUSED TO LET US TAKE HIS IV OUT OR SIGN THE AMA PAPERWORK AND LEFT HIS ROOM. SECURITY REPORTED THAT PATIENT REMOVED HIS OWN IV, LEFT THE BUILDING, AND WAS PICKED UP BY HIS CAREGIVER/FIANCE.
--- NOTE | 2023-03-23 16:41 | NUR ---
PT LEFT AMA NOTE: PT STATED HE WAS GOING TO GO OFF PREMISES TO SMOKE. PT INFORMED BY STAFF- SITTER AND PRIMARY RN IF HE LEFT PREMISES HE WOULD BE CONSIDERED LEAVING AMA. PT BEGAN YELLING AT STAFF, "THAT'S A STUPID FUCKING RULE, IF ANYTHING HAPPENS TO ME IT WILL BE YOUR FAULT." THIS RN INTERVENED WITH A FIRE SAFETY HANDOUT OF OUR POLICY TO GO OVER WITH PT. PT STATED "STAY AWAY FROM ME, I AM BIPOLAR AND YOU SHOULDN'T MESS WITH ME, I WILL HURT YOU." PT VERBALLY TOLD WHAT THE POLICY STATES AND PT STATED "I DON'T CARE WHAT IT SAYS, IT'S STUPID. I WILL JUST GO." THIS RN REQUESTED TO TAKE PT IV OUT AND HE AGAIN STATED, "NO, STAY AWAY FROM ME." THIS RN REQUESTED SWAPNA COSTA TO CALL SECURITY. THIS RN LEFT ROOM AND WATCHED FROM OUTSIDE ROOM. PT PACKED HIS BELONGINGS AND WALKED OUT. THIS RN AND MANISH NIETO FOLLOWED PT AT A DISTANCE AND HE STATED "STAY AWAY FROM ME OR I WILL HURT YOU." WATCHED PT LEAVE ON ELEVATOR ALONE WITH BELONGINGS. PT REPORTED TO HAVE BEEN MET BY SECURITY WHEN HE GOT OFF ELEVATOR.
== END 2023-03-23 16:00 | disposition left against medical advice (07) | DRG 872 ==
LOC: ER 09:41 → MEDS 15:15 → ER 16:00 → MEDS 16:27
PROVIDERS: Student in an Organized Health Care Education/Training Program; ADMIT Internal Medicine
DX: R78.81 Bacteremia (principal); R10.32 Left lower quadrant pain; G89.29 Other chronic pain; K21.9 Gastro-esophageal reflux disease without esophagitis; G62.9 Polyneuropathy, unspecified; I10 Essential (primary) hypertension; D72.829 Elevated white blood cell count, unspecified; M54.50 Low back pain, unspecified; F25.9 Schizoaffective disorder, unspecified; F17.200 Nicotine dependence, unspecified, uncomplicated; Z90.49 Acquired absence of other specified parts of digestive tract; Z53.29 Procedure and treatment not carried out because of patient's decision for other reasons; Z88.8 Allergy status to other drugs, medicaments and biological substances; Z79.1 Long term (current) use of non-steroidal anti-inflammatories (NSAID)
CPT/HCPCS: 36415; 74177; 80048; 80053; 80202; 81003; 83605; 83690; 85025; 85651; 86141; 87040; 96365-59; 96366; 96367; 96375; 99285-25; A9270; J0515; J1790; J1885; J2270; J2405; J2543; J3010; J3370; J7030; J7050; Q9967

== ENCOUNTER 2024-11-27 12:42 | Emergency (ER) | payer OTHER ==
[~2024-11-27] VITALS: Ht 182.9 cm; Wt 111.1 kg
[~2024-11-27 12:42] MED LIST changes: +Bentyl20 MG PO; +NEURONTIN300 MG PO; +PANTOPRAZOLE SO40 M2 PO
[2024-11-27] MEDS ORDERED: Ondansetron HCl 2 MG / ML 2ML Vial IV ONE (13:15)
[2024-11-27] MEDS ORDERED: Ketorolac Tromethamine 15mg Vial IV ONE (13:30)
[2024-11-27 13:41] LABS: BASOPHILS ABSOLUTE AUTO 0.05 K/mm3 (0.00-0.23); BASOPHILS PERCENT AUTO 0 % (0-2); EOSINOPHILS ABSOLUTE AUTO 0.26 K/mm3 (0.00-0.68); EOSINOPHILS PERCENT AUTO 2 % (0-6); Hematocrit 51.4 % (37.0-53.0); Hemoglobin 17.8 g/dL (13.5-17.5); IMMATURE GRAN ABSOLUTE AUTO 0.06 K/mm3 (0.00-0.10); IMMATURE GRAN PERCENT AUTO 0 % (0-1); LYMPHOCYTES ABSOLUTE AUTO 1.21 K/mm3 (0.84-5.20); LYMPHOCYTES PERCENT AUTO 8 % (21-46); MONOCYTES ABSOLUTE AUTO 0.86 K/mm3 (0.16-1.47); MONOCYTES PERCENT AUTO 5 % (4-13); Mean Corpuscular HGB 29.4 pg (26.0-34.0); Mean Corpuscular HGB Conc 34.6 g/dL (31.5-36.5); Mean Corpuscular Volume 85 fL (80-100); Mean Platelet Volume 8.5 fL (9.1-12.4); NEUTROPHILS ABSOLUTE AUTO 13.59 K/mm3 (1.96-9.15); NEUTROPHILS PERCENT AUTO 85 % (41-73); Platelet Count 240 K/mm3 (150-400); RDW Coefficient Variation 12.5 % (11.7-14.2); RDW Standard Deviation 38.4 fL (35.1-46.3); Red Blood Cell Count 6.06 M/mm3 (4.30-5.90); White Blood Cell Count 16.03 K/mm3 (4.00-11.30)
[2024-11-27 13:57] LABS: Albumin, Blood 3.8 g/dL (3.4-5.0); Bilirubin, Total 0.7 mg/dL (0.1-1.0); Calcium, Blood 8.7 mg/dL (8.5-10.1); Creatinine, Blood 0.69 mg/dL (0.60-1.20); Potassium, Blood 4.5 mmol/L (3.5-5.5); Total Protein, Blood 7.8 g/dL (6.4-8.2)
[2024-11-27 14:14] LABS: Influenza A, PCR NEGATIVE (NEGATIVE); Influenza B, PCR NEGATIVE (NEGATIVE); Resp Syncytial Virus, PCR NEGATIVE (NEGATIVE); SARS-Cov-2 (COVID-19) PCR, MMC NEGATIVE (NEGATIVE)
[2024-11-27 15:13] VITALS: BP 142/92
== END 2024-11-27 15:40 | disposition home or self-care (01) ==
LOC: ER 12:42
PROVIDERS: Physician Assistant
DX: R11.2 Nausea with vomiting, unspecified (principal); R10.32 Left lower quadrant pain; D72.829 Elevated white blood cell count, unspecified; F17.210 Nicotine dependence, cigarettes, uncomplicated; Z88.8 Allergy status to other drugs, medicaments and biological substances; Z79.899 Other long term (current) drug therapy
CPT/HCPCS: 0241U; 74177; 80053; 85025; 96374-59; 96375; 99284-25; J1885; J2405; Q9967